=== PATIENT | female | born 1945 | race Caucasian/White ===

== ENCOUNTER 2016-10-08 14:28 | Outpatient (CLI) | END 2016-10-08 14:29 | disposition home or self-care (01) ==

== ENCOUNTER 2017-01-12 10:30 | Outpatient (CLI) | payer MEDICARE | END 2017-01-12 10:31 | disposition home or self-care (01) | DX: L66.1 Lichen planopilaris (principal) ==

== ENCOUNTER 2017-03-04 15:55 | Outpatient (CLI) | payer MEDICARE | END 2017-03-04 15:56 | disposition home or self-care (01) | DX: M51.36 Other intervertebral disc degeneration, lumbar region (principal); M47.897 Other spondylosis, lumbosacral region; M43.9 Deforming dorsopathy, unspecified ==

== ENCOUNTER 2017-05-20 15:11 | Outpatient (CLI) | payer MEDICARE ==
[2017-05-20 15:39] LABS: BASOPHILS # (AUTO) 0.1 10^3/uL (0.0-0.1); BASOPHILS % (AUTO) 0.9 %; EOSINOPHILS # (AUTO) 0.2 10^3/uL (0.0-0.7); EOSINOPHILS % (AUTO) 2.4 %; HCT - HEMATOCRIT 40.2 % (37.0-47.0); HGB - HEMOGLOBIN 13.3 g/dL (12.0-16.0); LYMPHOCYTES # (AUTO) 1.9 10^3/uL (1.5-3.5); LYMPHOCYTES % (AUTO) 22.5 %; MEAN CORPUSCULAR HEMOGLOBIN 30.4 pg (27.0-31.0); MEAN PLATELET VOLUME 8.2 fL (7.9-10.8); MONOCYTES # (AUTO) 0.8 10^3/uL (0.0-1.0); MONOCYTES % (AUTO) 9.8 %; NEUTROPHILS # (AUTO) 5.5 10^3/uL (1.5-6.6); NEUTROPHILS % (AUTO) 64.4 %; RED BLOOD COUNT 4.37 10^6/uL (4.20-5.40); RED CELL DISTRIBUTION WIDTH 12.8 % (12.0-15.0); UNCORRECTED WHITE BLOOD COUNT 8.5 x10^3/uL; WHITE BLOOD COUNT 8.5 x10^3/uL (4.8-10.8)
[2017-05-20 15:52] LABS: ALBUMIN/GLOBULIN RATIO 1.4 (1.0-2.2); BILIRUBIN,TOTAL 0.4 mg/dL (0.2-1.0); CALCIUM 9.2 mg/dL (8.5-10.3); CREATININE 1.2 mg/dL (0.4-1.0); POTASSIUM 4.1 mmol/L (3.5-5.0)
== END 2017-05-20 15:12 | disposition home or self-care (01) ==
LOC: LAB 15:11
PROVIDERS: ATTEND Dermatology
DX: L66.1 Lichen planopilaris (principal)
CPT/HCPCS: 36415; 80053; 85025

== ENCOUNTER 2018-02-09 14:56 | Outpatient (CLI) | payer MEDICARE ==
[2018-02-09 15:19] LABS: BASOPHILS # (AUTO) 0.1 10^3/uL (0.0-0.1); BASOPHILS % (AUTO) 0.8 %; EOSINOPHILS # (AUTO) 0.2 10^3/uL (0.0-0.7); EOSINOPHILS % (AUTO) 2.3 %; HGB - HEMOGLOBIN 13.9 g/dL (12.0-16.0); LYMPHOCYTES # (AUTO) 1.8 10^3/uL (1.5-3.5); LYMPHOCYTES % (AUTO) 26.4 %; MEAN CORPUSCULAR HEMOGLOBIN 29.8 pg (27.0-31.0); MEAN CORPUSCULAR HGB CONC 33.5 g/dL (32.0-36.0); MEAN CORPUSCULAR VOLUME 89.1 fL (81.0-99.0); MONOCYTES # (AUTO) 0.7 10^3/uL (0.0-1.0); MONOCYTES % (AUTO) 9.8 %; NEUTROPHILS # (AUTO) 4.1 10^3/uL (1.5-6.6); NEUTROPHILS % (AUTO) 60.7 %; PLT - PLATELET COUNT 188 10^3/uL (130-450); RED BLOOD COUNT 4.67 10^6/uL (4.20-5.40); RED CELL DISTRIBUTION WIDTH 13.6 % (12.0-15.0); WHITE BLOOD COUNT 6.7 x10^3/uL (4.8-10.8)
[2018-02-09 15:24] LABS: ALBUMIN 4.2 g/dL (3.2-5.5); ALBUMIN/GLOBULIN RATIO 1.4 (1.0-2.2); BILIRUBIN,TOTAL 0.8 mg/dL (0.2-1.0); CALCIUM 9.1 mg/dL (8.5-10.3); CREATININE 0.9 mg/dL (0.4-1.0); TOTAL PROTEIN 7.2 g/dL (6.7-8.2)
== END 2018-02-09 14:57 | disposition home or self-care (01) ==
LOC: LAB 14:56
PROVIDERS: ATTEND Dermatology
DX: L66.1 Lichen planopilaris (principal)
CPT/HCPCS: 36415; 80053; 85025

== ENCOUNTER 2018-07-25 15:09 | Outpatient (CLI) | payer MEDICARE ==
[2018-07-25 15:27] LABS: BASOPHILS # (AUTO) 0.1 10^3/uL (0.0-0.1); BASOPHILS % (AUTO) 0.9 %; EOSINOPHILS # (AUTO) 0.2 10^3/uL (0.0-0.7); EOSINOPHILS % (AUTO) 2.9 %; HGB - HEMOGLOBIN 13.3 g/dL (12.0-16.0); LYMPHOCYTES # (AUTO) 1.6 10^3/uL (1.5-3.5); LYMPHOCYTES % (AUTO) 23.9 %; MEAN CORPUSCULAR HEMOGLOBIN 30.7 pg (27.0-31.0); MEAN CORPUSCULAR HGB CONC 33.9 g/dL (32.0-36.0); MEAN CORPUSCULAR VOLUME 90.4 fL (81.0-99.0); MEAN PLATELET VOLUME 8.1 fL (7.9-10.8); MONOCYTES # (AUTO) 0.6 10^3/uL (0.0-1.0); MONOCYTES % (AUTO) 9.9 %; NEUTROPHILS # (AUTO) 4.1 10^3/uL (1.5-6.6); NEUTROPHILS % (AUTO) 62.4 %; PLT - PLATELET COUNT 211 10^3/uL (130-450); RED BLOOD COUNT 4.33 10^6/uL (4.20-5.40); RED CELL DISTRIBUTION WIDTH 12.5 % (12.0-15.0); WHITE BLOOD COUNT 6.5 x10^3/uL (4.8-10.8)
[2018-07-25 15:42] LABS: ALBUMIN 4.1 g/dL (3.2-5.5); ALBUMIN/GLOBULIN RATIO 1.4 (1.0-2.2); CALCIUM 9.5 mg/dL (8.5-10.3); CREATININE 0.9 mg/dL (0.4-1.0); TOTAL PROTEIN 7.1 g/dL (6.7-8.2)
== END 2018-07-25 15:10 | disposition home or self-care (01) ==
LOC: LAB 15:09
PROVIDERS: ATTEND Dermatology
DX: Z79.899 Other long term (current) drug therapy (principal); L57.8 Other skin changes due to chronic exposure to nonionizing radiation; L82.0 Inflamed seborrheic keratosis; R20.9 Unspecified disturbances of skin sensation; R20.8 Other disturbances of skin sensation; Z78.9 Other specified health status; L53.8 Other specified erythematous conditions; L66.1 Lichen planopilaris
CPT/HCPCS: 36415; 80053; 85025

== ENCOUNTER 2018-09-16 08:53 | Outpatient (CLI) | payer MEDICARE ==
--- NOTE | 2018-09-19 18:50 | DEXA Report ---
Reason: ABNORMAL POSTURE Procedure Date: 09/16/2018 Accession Number: [id number] / [id number] Procedure: DEX - Dexa Spine and/or Hip CPT Code: FULL RESULT: EXAM: Dexa Spine and/or Hip DATE: 09/16/2018 9:15 AM CLINICAL HISTORY: ABNORMAL POSTURE TECHNIQUE: Dual energy x-ray absorptiometry (DXA) was performed on a [employer] System. Regions measured are the AP Spine, femoral neck, and if needed forearm. COMPARISON: None. In accordance with the International Society for Clinical Densitometry (ISCD) guidelines, data from previous exams may be reanalyzed using current recommendations and techniques. This is done to allow a more accurate basis for comparison with the current study. FINDINGS: The data for the lumbar spine is as follows: BMD (g/cm/cm) T-SCORE Z-SCORE REGION L1 0.959 -1.4 0.3 L2 1.078 -1.0 0.7 L3 1.104 -0.8 1.0 L4 1.003 -1.6 0.1 TOTAL 1.028 -1.3 0.5 NOTE: All evaluable vertebrae are used for classification The data for the hip is as follows: BMD (g/cm/cm) T-SCORE Z-SCORE REGION Neck 0.805 -1.7 0.2 TOTAL 0.882 -1.0 0.7 IMPRESSION: THE WHO CLASSIFICATION BASED ON THE INTERNATIONAL REFERENCE STANDARD IS OSTEOPENIA. THE FRACTURE RISK IS INCREASED. RECOMMENDATION: Patients with diagnosis of osteoporosis or osteopenia should have regular bone mineral density assessment. For those eligible for Medicare, routine testing is allowed once every 2 years. Testing frequency can be increased for patients who have rapidly progressing disease or for those who are receiving medical therapy to restore bone mass. COMMENT: World Health Organization (WHO) definitions for osteoporosis and osteopenia: NORMAL BMD: T-score at -1.0 or higher, fracture risk is low OSTEOPENIA BMD: T-score between -1.0 and -2.5, fracture risk is increased. OSTEOPOROSIS BMD: T-score at -2.5 or lower, fracture risk is high. National Osteoporosis Foundation recommends: 1. Obtain adequate dietary calcium (at least 1200 mg per day) and vitamin D (400-800 international units per day). 2. Participate, as appropriate, in regular weightbearing and muscle-strengthening exercise. 3. Avoid tobacco use and reduce alcohol and caffeine intake. 4. For more detailed information see the website at www.NOF.org.
== END 2018-09-16 08:54 | disposition home or self-care (01) ==
LOC: DI 08:53
PROVIDERS: ATTEND Internal Medicine
DX: M85.89 Other specified disorders of bone density and structure, multiple sites (principal)
CPT/HCPCS: 77080

== ENCOUNTER 2018-11-02 10:49 | Outpatient (CLI) | payer MEDICARE ==
[2018-11-02 11:06] LABS: BASOPHILS % (AUTO) 0.8 %; EOSINOPHILS # (AUTO) 0.1 10^3/uL (0.0-0.7); EOSINOPHILS % (AUTO) 2.4 %; HGB - HEMOGLOBIN 13.5 g/dL (12.0-16.0); LYMPHOCYTES # (AUTO) 1.4 10^3/uL (1.5-3.5); LYMPHOCYTES % (AUTO) 24.7 %; MEAN CORPUSCULAR HEMOGLOBIN 30.1 pg (27.0-31.0); MEAN CORPUSCULAR HGB CONC 33.9 g/dL (32.0-36.0); MEAN CORPUSCULAR VOLUME 88.9 fL (81.0-99.0); MEAN PLATELET VOLUME 8.2 fL (7.9-10.8); MONOCYTES # (AUTO) 0.6 10^3/uL (0.0-1.0); MONOCYTES % (AUTO) 10.6 %; NEUTROPHILS # (AUTO) 3.5 10^3/uL (1.5-6.6); NEUTROPHILS % (AUTO) 61.5 %; PLT - PLATELET COUNT 187 10^3/uL (130-450); RED BLOOD COUNT 4.49 10^6/uL (4.20-5.40); RED CELL DISTRIBUTION WIDTH 12.9 % (12.0-15.0); WHITE BLOOD COUNT 5.7 x10^3/uL (4.8-10.8)
[2018-11-02 11:18] LABS: ALBUMIN 4.1 g/dL (3.2-5.5); ALBUMIN/GLOBULIN RATIO 1.4 (1.0-2.2); BILIRUBIN,TOTAL 0.8 mg/dL (0.2-1.0); CALCIUM 9.3 mg/dL (8.5-10.3); CREATININE 0.8 mg/dL (0.4-1.0)
== END 2018-11-02 10:50 | disposition home or self-care (01) ==
LOC: LAB 10:49
PROVIDERS: ATTEND Dermatology
DX: L66.1 Lichen planopilaris (principal)
CPT/HCPCS: 36415; 80053; 85025

== ENCOUNTER 2019-01-20 12:47 | Outpatient (CLI) | payer MEDICARE ==
[2019-01-20 13:20] LABS: BASOPHILS # (AUTO) 0.1 10^3/uL (0.0-0.1); BASOPHILS % (AUTO) 0.7 %; EOSINOPHILS # (AUTO) 0.2 10^3/uL (0.0-0.7); EOSINOPHILS % (AUTO) 2.5 %; HGB - HEMOGLOBIN 12.9 g/dL (12.0-16.0); LYMPHOCYTES # (AUTO) 1.6 10^3/uL (1.5-3.5); LYMPHOCYTES % (AUTO) 23.2 %; MEAN CORPUSCULAR HEMOGLOBIN 29.4 pg (27.0-31.0); MEAN CORPUSCULAR HGB CONC 32.9 g/dL (32.0-36.0); MEAN CORPUSCULAR VOLUME 89.4 fL (81.0-99.0); MONOCYTES # (AUTO) 0.7 10^3/uL (0.0-1.0); MONOCYTES % (AUTO) 9.6 %; NEUTROPHILS # (AUTO) 4.4 10^3/uL (1.5-6.6); PLT - PLATELET COUNT 178 10^3/uL (130-450); RED BLOOD COUNT 4.38 10^6/uL (4.20-5.40); RED CELL DISTRIBUTION WIDTH 13.4 % (12.0-15.0); WHITE BLOOD COUNT 6.9 x10^3/uL (4.8-10.8)
[2019-01-20 13:37] LABS: ALBUMIN 3.9 g/dL (3.2-5.5); ALBUMIN/GLOBULIN RATIO 1.4 (1.0-2.2); BILIRUBIN,TOTAL 0.8 mg/dL (0.2-1.0); CALCIUM 9.1 mg/dL (8.5-10.3); CREATININE 0.9 mg/dL (0.4-1.0); TOTAL PROTEIN 6.7 g/dL (6.7-8.2)
== END 2019-01-20 12:48 | disposition home or self-care (01) ==
LOC: LAB 12:47
PROVIDERS: ATTEND Dermatology
DX: L66.1 Lichen planopilaris (principal)
CPT/HCPCS: 36415; 80053; 85025

== ENCOUNTER 2019-05-10 11:45 | Emergency (ER) | payer MEDICARE ==
--- NOTE | 2019-05-10 12:00 | ED Physician Documentation ---
History of Present Illness - Stated complaint Stated Complaint: SOA/LIGHTHEADED - Chief complaint Chief Complaint: Cardiac - History obtained from History obtained from: Patient - Additonal information Additional information: Patient is a 73-year-old female presenting with about 1 day of lightheadedness, shortness of breath, and difficulty with balance without particular inciting incident, exposure, or trauma. Patient reports fleeting vision changes earlier this morning, but now denies any vision loss or diplopia. Patient also denies any particular paresthesias or paralysis, but reports balance is off. No falls or trauma. Patient denies headache, chest pain, abdominal pain or other areas of pain. Patient also denies cough, fever, nausea, vomiting, urinary changes, or stool changes. Patient does report faint rash over her chest in the past several days which has now resolved. Again, patient denies new medications, exposures, or other changes from baseline. No other improving or worsening factors noted. Review of Systems Constitutional: denies: Fever Eyes: reports: Loss of vision Cardiac: denies: Chest pain / pressure, Palpitations Respiratory: reports: Dyspnea. denies: Cough GI: denies: Abdominal Pain, Nausea, Vomiting, Constipation, Diarrhea : denies: Dysuria Skin: reports: Rash Neurologic: denies: Generalized weakness, Focal weakness, Numbness, Difficulty speaking, Near syncope PD PAST MEDICAL HISTORY - Past Medical History Past Medical History: Yes HEENT: Glaucoma - Past Surgical History Past Surgical History: No - Allergies Allergies/Adverse Reactions: Allergies Allergy/AdvReac Type Severity Reaction Status Date / Time codeine Allergy Unknown Verified 05/10/19 11:55 nitrofurantoin Allergy Unknown Verified 05/10/19 11:55 [From Macrobid] PD ED PE NORMAL - Vitals Vital signs reviewed: Yes - General General: Alert and oriented X 3, No acute distress, Well developed/nourished - HEENT HEENT: Atraumatic, PERRL, EOMI (No nystagmus. Gross visual acuity intact.), Moist mucous membranes, Pharynx benign, Dentition benign - Neck Neck: Supple, no meningeal sign - Cardiac Cardiac: RRR, No murmur - Respiratory Respiratory: No respiratory distress, Clear bilaterally - Abdomen Abdomen: Soft, Non tender, Non distended - Derm Derm: Normal color, Warm and dry, No rash - Extremities Extremities: No deformity, No tenderness to palpate, No edema - Neuro Neuro: Alert and oriented X 3, No motor deficit, No sensory deficit - Psych Psych: Normal mood, Normal affect Results - Vitals Vitals: Vital Signs - 24 hr 05/10/19 05/10/19 11:53 12:55 Temperature 97.8 C H Heart Rate 125 H 60 Respiratory 18 17 Rate Blood Pressure 140/73 H 121/63 O2 Saturation 94 100 Oxygen O2 Source Room air - EKG (time done) 1149 Rate: Rate (enter#) (62) Rhythm: NSR - Labs Labs: Laboratory Tests 05/10/19 05/10/19 05/10/19 12:07 12:55 12:55 WBC 6.8 RBC 4.55 Hgb 13.4 Hct 41.5 MCV 91.2 MCH 29.5 MCHC 32.3 RDW 12.7 Plt Count 189 MPV 10.2 Neut # (Auto) 4.2 Lymph # (Auto) 1.8 [place] # (Auto) 0.6 Eos # (Auto) 0.1 Baso # (Auto) 0.0 Absolute Nucleated RBC 0.00 Nucleated RBC % 0.0 Sodium 140 Potassium 3.9 Chloride 109 Carbon Dioxide 22 Anion Gap 9.0 BUN 18 Creatinine 1.0 Estimated GFR (MDRD) 54 L Glucose 89 Calcium 9.2 Total Bilirubin 1.0 AST 20 ALT 14 Alkaline Phosphatase 46 Troponin I B-Natriuretic Peptide Total Protein 6.9 Albumin 4.1 Globulin 2.8 Albumin/Globulin Ratio 1.5 Lipase 36 TSH Urine Color YELLOW Urine Clarity CLEAR Urine pH 7.5 Ur Specific [place] <=1.005 Urine Protein NEGATIVE Urine Glucose (UA) NEGATIVE Urine Ketones NEGATIVE Urine Occult Blood NEGATIVE Urine Nitrite NEGATIVE Urine Bilirubin NEGATIVE Urine Urobilinogen 0.2 (NORMAL) Ur Leukocyte Esterase NEGATIVE Ur Microscopic Review NOT INDICATED Urine Culture Comments NOT INDICATED 05/10/19 05/10/19 05/10/19 12:55 12:55 12:55 WBC RBC Hgb Hct MCV MCH MCHC RDW Plt Count MPV Neut # (Auto) Lymph # (Auto) [place] # (Auto) Eos # (Auto) Baso # (Auto) Absolute Nucleated RBC Nucleated RBC % Sodium Potassium Chloride Carbon Dioxide Anion Gap BUN Creatinine Estimated GFR (MDRD) Glucose Calcium Total Bilirubin AST ALT Alkaline Phosphatase Troponin I < 0.04 B-Natriuretic Peptide 128 H Total Protein Albumin Globulin Albumin/Globulin Ratio Lipase TSH 3.93 Urine Color Urine Clarity Urine pH Ur Specific [place] Urine Protein Urine Glucose (UA) Urine Ketones Urine Occult Blood Urine Nitrite Urine Bilirubin Urine Urobilinogen Ur Leukocyte Esterase Ur Microscopic Review Urine Culture Comments PD MEDICAL DECISION MAKING - ED course Complexity details: reviewed results, re-evaluated patient, considered differential, d/w patient, d/w family ED course: Patient presenting with generalized lightheadedness, shortness of breath and fleeting vision changes. Physical exam is extremely benign including no evidence of neurological deficit, trauma, or infection present. Lower suspicion for benign positional vertigo based on lack of dizziness, nausea, vomiting. Have lower suspicion for stroke or other intracranial pathology, but did obtain CT head to further rule out, which returned unremarkable. Patient denies symptoms that raise high suspicion for PE, ACS, unstable angina, [place], aneurysm, dissection, pneumonia, but considered. Chest x-ray did not find evidence of acute pathology but incidental finding which was conveyed to patient. EKG and troponin within normal limits. Given lack of chest pain, do not feel cardiac etiology including CHF is of high suspicion. Remainder of screening lab work and urinalysis also returned relatively unremarkable with no evidence of bacteremia, acute kidney injury, electrolyte abnormality, or UTI. Patient reported improvement in shortness of breath while in the ED. Had extensive discussions regarding discharge home with strict return precautions and close follow-up. Patient and family voiced understanding and is comfortable with discharge plan. Departure - Departure Disposition: 01 Home, Self Care Clinical Impression: Dyspnea Qualifiers: Dyspnea type: shortness of breath Qualified Code(s): R06.02 - Shortness of b reath; R06.00 - Dyspnea, unspecified; R06.01 - Orthopnea Condition: Good Instructions: ED Dyspnea Shortness of Breath Follow-Up: Nakita Toney MD [Primary Care Provider] - Within 3 Days Comments: Please continue home medications as previously recommended. Advise minimal exertion over the next several days and contacting your primary care physician to establish follow-up in the next 2 to 3 days. Please return to the ED immediately if experience consistent symptoms or worsening of symptoms, as well as any other complaints.
[2019-05-10 12:19] LABS: BILIRUBIN,URINE NEGATIVE (NEGATIVE); GLUCOSE, URINE (UA) NEGATIVE (NEGATIVE); KETONES,URINE (UA) NEGATIVE (NEGATIVE); LEUKOCYTE ESTERASE, URINE NEGATIVE (NEGATIVE); NITRITE,URINE NEGATIVE (NEGATIVE); OCCULT BLOOD,URINE NEGATIVE (NEGATIVE); PH,URINE 7.5 PH (5.0-7.5); PROTEIN,URINE NEGATIVE (NEGATIVE); UROBILINOGEN,URINE 0.2 (NORMAL) E.U./dL (NORMAL)
[2019-05-10 12:20] LABS: CLARITY,URINE CLEAR (CLEAR)
--- NOTE | 2019-05-10 12:44 | XRAY Report ---
Reason: cough Procedure Date: 05/10/2019 Accession Number: [id number] / [id number] Procedure: XR - Chest 2 View X-Ray CPT Code: 91652 FULL RESULT: EXAM: CHEST RADIOGRAPHY EXAM DATE: 05/10/2019 12:24 PM. CLINICAL HISTORY: Cough. COMPARISON: None. TECHNIQUE: 2 views. FINDINGS: Lungs/Pleura: Possible nodule left lung base versus nipple shadow between the posterior ninth and 10th rib No focal opacities evident. No pleural effusion. No pneumothorax. Normal volumes. Mediastinum: Heart and mediastinal contours are unremarkable. Other: None. IMPRESSION: Nodule versus nipple shadow left lung base. RADIA
--- NOTE | 2019-05-10 12:46 | CT Report ---
Reason: lightheaded, fleeting vison changes Procedure Date: 05/10/2019 Accession Number: [id number] / [id number] Procedure: CT - HEAD WO CPT Code: FULL RESULT: EXAM: CT HEAD EXAM DATE: 05/10/2019 12:32 PM. CLINICAL HISTORY: Lightheaded, fleeting vison changes. COMPARISON: None. TECHNIQUE: Multiaxial CT images were obtained from the foramen magnum to the vertex. Reformats: Sagittal and coronal. IV contrast: None. In accordance with CT protocol optimization, one or more of the following dose reduction techniques were utilized for this exam: automated exposure control, adjustment of mA and/or KV based on patient size, or use of iterative reconstructive technique. FINDINGS: Parenchyma: No intraparenchymal hemorrhage. No evidence of mass, midline shift, or CT findings of infarction. Brink-white differentiation is distinct. Extraaxial Spaces: Normal for age. No subdural or epidural collections identified. Ventricles: Normal in size and position. Sinuses and Orbits: Imaged paranasal sinuses, orbits, and mastoids show no significant abnormality. Note is made of left lens removal. Bones: No evidence of fracture or calvarial defect. Other: None. IMPRESSION: 1. Negative noncontrast CT scan of the head. No acute abnormality. RADIA
[2019-05-10 13:03] LABS: BASOPHILS % (AUTO) 0.6 %; EOSINOPHILS # (AUTO) 0.1 10^3/uL (0.0-0.7); EOSINOPHILS % (AUTO) 1.8 %; HGB - HEMOGLOBIN 13.4 g/dL (12.0-16.0); LYMPHOCYTES # (AUTO) 1.8 10^3/uL (1.5-3.5); MEAN CORPUSCULAR HEMOGLOBIN 29.5 pg (27.0-31.0); MEAN CORPUSCULAR HGB CONC 32.3 g/dL (32.0-36.0); MEAN CORPUSCULAR VOLUME 91.2 fL (81.0-99.0); MEAN PLATELET VOLUME 10.2 fL (7.9-10.8); MONOCYTES # (AUTO) 0.6 10^3/uL (0.0-1.0); MONOCYTES % (AUTO) 8.9 %; NEUTROPHILS # (AUTO) 4.2 10^3/uL (1.5-6.6); NEUTROPHILS % (AUTO) 62.4 %; PLT - PLATELET COUNT 189 10^3/uL (130-450); RED BLOOD COUNT 4.55 10^6/uL (4.20-5.40); RED CELL DISTRIBUTION WIDTH 12.7 % (12.0-15.0); WHITE BLOOD COUNT 6.8 x10^3/uL (4.8-10.8)
[2019-05-10 13:22] LABS: ALBUMIN 4.1 g/dL (3.2-5.5); ALBUMIN/GLOBULIN RATIO 1.5 (1.0-2.2); CALCIUM 9.2 mg/dL (8.5-10.3); TOTAL PROTEIN 6.9 g/dL (6.7-8.2)
[2019-05-10 14:18] VITALS: BP 127/72
== END 2019-05-10 14:18 | disposition home or self-care (01) ==
LOC: ED 11:45
DX: R06.01 Orthopnea (principal)
CPT/HCPCS: 36415; 70450; 71046; 80053; 81001; 81003; 83690; 83880; 84443; 84484; 85025; 87086; 93005; 99283; 99284

== ENCOUNTER 2019-05-24 12:14 | Outpatient (CLI) | payer MEDICARE ==
[2019-05-24 12:37] LABS: BASOPHILS % (AUTO) 0.6 %; EOSINOPHILS # (AUTO) 0.1 10^3/uL (0.0-0.7); EOSINOPHILS % (AUTO) 1.9 %; HGB - HEMOGLOBIN 12.9 g/dL (12.0-16.0); LYMPHOCYTES # (AUTO) 1.5 10^3/uL (1.5-3.5); LYMPHOCYTES % (AUTO) 22.4 %; MEAN CORPUSCULAR HEMOGLOBIN 30.3 pg (27.0-31.0); MEAN CORPUSCULAR HGB CONC 32.8 g/dL (32.0-36.0); MEAN CORPUSCULAR VOLUME 92.3 fL (81.0-99.0); MEAN PLATELET VOLUME 9.8 fL (7.9-10.8); MONOCYTES # (AUTO) 0.7 10^3/uL (0.0-1.0); MONOCYTES % (AUTO) 9.7 %; NEUTROPHILS # (AUTO) 4.5 10^3/uL (1.5-6.6); NEUTROPHILS % (AUTO) 65.1 %; PLT - PLATELET COUNT 172 10^3/uL (130-450); RED BLOOD COUNT 4.26 10^6/uL (4.20-5.40); WHITE BLOOD COUNT 6.9 x10^3/uL (4.8-10.8)
[2019-05-24 12:54] LABS: ALBUMIN 3.7 g/dL (3.2-5.5); ALBUMIN/GLOBULIN RATIO 1.2 (1.0-2.2); BILIRUBIN,TOTAL 0.6 mg/dL (0.2-1.0); CALCIUM 9.4 mg/dL (8.5-10.3); CREATININE 0.9 mg/dL (0.4-1.0); TOTAL PROTEIN 6.8 g/dL (6.7-8.2)
== END 2019-05-24 12:15 | disposition home or self-care (01) ==
LOC: LAB 12:14
PROVIDERS: ATTEND Dermatology
DX: L66.1 Lichen planopilaris (principal)
CPT/HCPCS: 36415; 80053; 85025

== ENCOUNTER 2021-04-05 15:10 | Outpatient (CLI) | payer MEDICARE | END 2021-04-05 15:11 | disposition critical access hospital (66) | LOC: EMS 15:10 | DX: Z04.3 Encounter for examination and observation following other accident (principal); M25.551 Pain in right hip | CPT/HCPCS: A0425; A0429 ==

== ENCOUNTER 2021-04-05 15:19 | Emergency (ER) | payer MEDICARE ==
--- NOTE | 2021-04-05 15:38 | ED Physician Documentation ---
PD HPI LOWER EXT INJURY - Stated complaint Stated Complaint: HIP PX - Chief complaint Chief Complaint: Trauma Ext - History obtained from History obtained from: Patient, EMS - History of Present Illness PD HPI LOW EXT INJURY LOCATION: Right, Hip Type of injury: Fall Where injury occurred: Home Timing - onset: Today Timing - duration: Minutes Timing - details: Abrupt onset, Still present Improved by: Rest, Immobilization Worsened by: Moving, Palpating Associated symptoms: No: Weakness, Numbness, Tingling, Swelling Contributing factors: No: Anticoagulated Similar symptoms before: Has not had sx before Recently seen: Not recently seen - Additional information Additional information: Previously well 75-year-old female with history of glaucoma was up on a two-step stool working on her [place] in the stool gave way she fell onto her right hip. She is not able to move it it hurts and she is worried about a fracture. The ambulance was summoned to her home and picked her up and brought her here to our hospital. Review of Systems Constitutional: denies: Fever Eyes: denies: Decreased vision Ears: denies: Ear pain Nose: denies: Congestion Throat: denies: Sore throat Cardiac: denies: Chest pain / pressure, Palpitations Respiratory: denies: Dyspnea, Cough GI: denies: Abdominal Pain, Nausea, Vomiting, Constipation, Diarrhea : denies: Dysuria, Frequency Skin: denies: Rash Musculoskeletal: reports: Extremity pain, Joint pain. denies: Neck pain, Back pain Neurologic: denies: Generalized weakness, Focal weakness, Numbness PD PAST MEDICAL HISTORY - Past Medical History HEENT: Glaucoma - Past Surgical History Past Surgical History: No - Allergies Allergies/Adverse Reactions: Allergies Allergy/AdvReac Type Severity Reaction Status Date / Time codeine Allergy Unknown Verified 04/05/21 15:32 nitrofurantoin Allergy Unknown Verified 04/05/21 15:32 [From Macrobid] - Social History Does the pt smoke?: No Smoking Status: Never smoker PD ED PE NORMAL - Vitals Vital signs reviewed: Yes (wide pulse pressure) - General General: Alert and oriented X 3, No acute distress, Well developed/nourished - HEENT HEENT: Atraumatic, PERRL, EOMI - Neck Neck: Supple, no meningeal sign, No bony TTP - Cardiac Cardiac: RRR, No murmur - Respiratory Respiratory: No respiratory distress, Clear bilaterally - Abdomen Abdomen: Normal bowel sounds, Soft, Non tender, Non distended, No organomegaly - Back Back: No CVA TTP, No spinal TTP - Derm Derm: Normal color, Warm and dry, No rash - Extremities Extremities: No deformity, No edema, Other (R hip: tenderness to the trochanter and pain with any ROM movement. R shoulder tender with reduced ROM from pain. ) - Neuro Neuro: Alert and oriented X 3, pot feeder 2-12 intact, No motor deficit, No sensory deficit, Normal speech Eye Opening: Spontaneous Motor: Obeys Commands Verbal: Oriented GCS Score: 15 - Psych Psych: Normal mood, Normal affect Results - Vitals Vitals: Vital Signs - 24 hr 04/05/21 04/05/21 15:28 18:30 Temperature 36.9 C Heart Rate 56 L 73 Respiratory 16 10 L Rate Blood Pressure 100/53 L 131/73 H O2 Saturation 100 97 Oxygen O2 Source Room air - Labs Labs: Laboratory Tests 04/05/21 04/05/21 16:25 16:25 WBC 8.6 RBC 4.15 L Hgb 12.3 Hct 38.3 MCV 92.3 MCH 29.6 MCHC 32.1 RDW 13.5 Plt Count 151 MPV 10.6 Neut # (Auto) 6.5 Lymph # (Auto) 1.1 L [place] # (Auto) 0.8 Eos # (Auto) 0.2 Baso # (Auto) 0.0 Absolute Nucleated RBC 0.00 Nucleated RBC % 0.0 Sodium 141 Potassium 3.6 Chloride 108 Carbon Dioxide 23 Anion Gap 10.0 BUN 20 Creatinine 0.9 Estimated GFR (MDRD) 61 L Glucose 110 H Calcium 9.0 Total Bilirubin 0.9 AST 19 ALT 18 Alkaline Phosphatase 48 Total Protein 6.4 L Albumin 3.8 Globulin 2.6 Albumin/Globulin Ratio 1.5 Lipase 33 - Rads (name of study) hip R Radiology: Prelim report reviewed (Impression: Comminuted trochanteric fracture of the right hip.), EMP read indepedently, See rad report shoulder R Radiology: Prelim report reviewed (Impression: No evidence of acute bony abnormality of the right shoulder.), EMP read indepedently, See rad report PD MEDICAL DECISION MAKING - ED course Complexity details: reviewed results, re-evaluated patient, considered differential, d/w patient, d/w family ED course: 75-year-old female has fallen off of a stepladder and fractured her right hip. She injured her right shoulder there is no evidence of fracture. She is treated in the emergency department with intravenous Toradol without adequate pain relief and she gets adequate pain relief with use of Dilaudid and Zofran. We have no orthopedic availability here at [facility] today and I have reached out to our friends at [facility] for potential transfer. Dr. Uribe was kind enough to call us back and has accepted the patient in transfer and asks that we call the hospitalist for direct admit. Departure - Departure Disposition: 02 Transfer Acute Care Hosp Clinical Impression: Closed right hip fracture Condition: Stable
[2021-04-05] MEDS ORDERED: KETOROLAC 30 MG/ML VIAL IVP STA (16:14)
[2021-04-05 16:30] LABS: BASOPHILS % (AUTO) 0.5 %; EOSINOPHILS # (AUTO) 0.2 10^3/uL (0.0-0.7); EOSINOPHILS % (AUTO) 1.8 %; HCT - HEMATOCRIT 38.3 % (37.0-47.0); HGB - HEMOGLOBIN 12.3 g/dL (12.0-16.0); LYMPHOCYTES # (AUTO) 1.1 10^3/uL (1.5-3.5); LYMPHOCYTES % (AUTO) 12.9 %; MEAN CORPUSCULAR HEMOGLOBIN 29.6 pg (27.0-31.0); MEAN CORPUSCULAR HGB CONC 32.1 g/dL (32.0-36.0); MEAN CORPUSCULAR VOLUME 92.3 fL (81.0-99.0); MEAN PLATELET VOLUME 10.6 fL (7.9-10.8); MONOCYTES # (AUTO) 0.8 10^3/uL (0.0-1.0); MONOCYTES % (AUTO) 8.9 %; NEUTROPHILS # (AUTO) 6.5 10^3/uL (1.5-6.6); NEUTROPHILS % (AUTO) 75.4 %; PLT - PLATELET COUNT 151 10^3/uL (130-450); RED BLOOD COUNT 4.15 10^6/uL (4.20-5.40); RED CELL DISTRIBUTION WIDTH 13.5 % (12.0-15.0); WHITE BLOOD COUNT 8.6 x10^3/uL (4.8-10.8)
[2021-04-05 16:42] LABS: ALBUMIN 3.8 g/dL (3.2-5.5); ALBUMIN/GLOBULIN RATIO 1.5 (1.0-2.2); BILIRUBIN,TOTAL 0.9 mg/dL (0.2-1.0); CREATININE 0.9 mg/dL (0.4-1.0); POTASSIUM 3.6 mmol/L (3.5-5.0); TOTAL PROTEIN 6.4 g/dL (6.7-8.2)
[2021-04-05] MEDS ORDERED: HYDROmorphone 1 MG/ML CARPUJECT IVP STA ×3 (16:43→20:12)
[2021-04-05] MEDS ORDERED: ONDANSETRON 4 MG/2 ML VIAL IVP STA (16:43)
--- NOTE | 2021-04-05 17:33 | XRAY Report ---
PROCEDURE: Shoulder 3 View RT INDICATIONS: fall shoulder pain TECHNIQUE: 3 views of the shoulder were acquired. COMPARISON: None. FINDINGS: Bones: No fractures or dislocations. No suspicious bony lesions. Visualized ribs appear intact. Soft tissues: No suspicious soft tissue calcifications. IMPRESSION: No evidence acute bony abnormality of the right shoulder. If clinical suspicion and/or symptoms persist, further assessment with repeat plain films or advanced imaging (e.g., CT, MRI, or bone scan) may be helpful for further assessment. Reviewed by: Vishnu Arreola MD on 04/05/2021 4:32 PM EVETTE Approved by: Vishnu Arreola MD on 04/05/2021 4:32 PM EVETTE Station ID: [id number]
--- NOTE | 2021-04-05 17:33 | XRAY Report ---
PROCEDURE: Hip w/Pelvis 2-3V RT INDICATIONS: fall pain TECHNIQUE: AP pelvis with lateral view(s) of the right hip(s). COMPARISON: None. FINDINGS: Bones: Comminuted trochanteric fracture of the right hip with varus angulation. No dislocation. No ot her fractures. Pelvic ring appears intact. No suspicious bony lesions. Soft tissues: The visualized bowel gas pattern is normal. No suspicious soft tissue calcifications. IMPRESSION: Comminuted trochanteric fracture of the right hip. Reviewed by: Vishnu Arreola MD on 04/05/2021 4:31 PM EVETTE Approved by: Vishnu Arreola MD on 04/05/2021 4:31 PM EVETTE Station ID: [id number]
[2021-04-05 20:24] VITALS: BP 115/60
== END 2021-04-05 20:37 | disposition short-term general hospital (02) ==
LOC: EDUNIT# → ED 15:19
DX: S49.91XA Unspecified injury of right shoulder and upper arm, initial encounter (principal); S72.091A Other fracture of head and neck of right femur, initial encounter for closed fracture; W17.89XA Other fall from one level to another, initial encounter; Y93.H2 Activity, gardening and landscaping; Y92.007 Garden or yard of unspecified non-institutional (private) residence as the place of occurrence of the external cause
CPT/HCPCS: 36415; 73030; 73502; 80053; 83690; 85025; 96374; 96375; 96376; 99284; 99285; J1170

== ENCOUNTER 2021-04-05 20:40 | Outpatient (CLI) | payer MEDICARE | END 2021-04-05 20:41 | disposition short-term general hospital (02) | LOC: EMS 20:40 | PROVIDERS: ATTEND Emergency Medicine | DX: S72.101A Unspecified trochanteric fracture of right femur, initial encounter for closed fracture (principal); W08.XXXA Fall from other furniture, initial encounter; Y93.H2 Activity, gardening and landscaping; Y92.007 Garden or yard of unspecified non-institutional (private) residence as the place of occurrence of the external cause | CPT/HCPCS: A0425; A0428 ==

== ENCOUNTER 2021-08-21 09:55 | Outpatient (CLI) | payer MEDICARE ==
--- NOTE | 2021-08-21 16:22 | DEXA Report ---
PROCEDURE: Dexa Spine and/or Hip INDICATIONS: OSTEOPOROSIS SCREENING TECHNIQUE: Dual energy x-ray absorptiometry (DXA) was performed on a [employer]. Regions measur ed are the AP Spine, femoral neck, and if needed forearm. COMPARISON: DEXA 09/16/2018 FINDINGS: Lumbar Spine: Bone Mineral Density 1.020 g/cm/cm,T score -1.3, unchanged Left Hip: Bone Mineral Density 0.799 g/cm/cm,T score -1.7, compared to -1.0 Left Femoral Neck: Bone Mineral Density 0.796 g/cm/cm, T score -1.7, unchanged (T score greater or equal to -1.0: NORMAL) (T score from -1.1 to -2.4: OSTEOPENIA) (T score less than or equal to -2.5 to: OSTEOPOROSIS) Impression: Mild to moderate osteopenia within the left hip progressive compared to prior exam. Patients with diagnosis of osteoporosis or osteopenia should have regular bone mineral density assess ment. For those eligible for Medicare, routine testing is allowed once every 2 years. Testing frequ ency can be increased for patients who have rapidly progressing disease or for those who are receivin g medical therapy to restore bone mass. Reviewed by: Regina Gardner MD on 08/21/2021 4:21 PM PST Approved by: Regina Gardner MD on 08/21/2021 4:21 PM PST Station ID: [id number]
== END 2021-08-21 09:56 | disposition home or self-care (01) ==
LOC: DI 09:55
PROVIDERS: ATTEND Nurse Practitioner Family
DX: Z13.820 Encounter for screening for osteoporosis (principal); M85.89 Other specified disorders of bone density and structure, multiple sites; Z78.0 Asymptomatic menopausal state

== ENCOUNTER 2022-04-23 07:36 | Outpatient (CLI) | payer MEDICARE | END 2022-04-23 07:37 | disposition short-term general hospital (02) | LOC: EMS 07:36 | DX: Z04.3 Encounter for examination and observation following other accident (principal) | CPT/HCPCS: A0425; A0427 ==

== ENCOUNTER 2022-04-28 08:00 | Outpatient (CLI) | payer MEDICARE ==
--- NOTE | 2022-04-28 15:01 | XRAY Report ---
PROCEDURE: Shoulder 3 View LT INDICATIONS: SHOULDER FX TECHNIQUE: 4 views of the shoulder were acquired. COMPARISON: Left shoulder radiographs 04/23/2022 FINDINGS: Bones: There is a comminuted displaced fracture of the proximal humeral head and neck. Compared to th e exam from 04/23/2022, there appears to be increased anterior and medial displacement of the humeral shaft fragment relative to the humeral head. Soft tissues: No suspicious soft tissue calcifications. IMPRESSION: Comminuted displaced fracture of the proximal humerus is redemonstrated with increased a nterior medial displacement of the humeral shaft component when compared to the exam from 04/23/2022. Reviewed by: Virgilio Estevez MD on 04/28/2022 2:59 PM PDT Approved by: Virgilio Estevez MD on 04/28/2022 2:59 PM PDT Station ID: [id number]
== END 2022-04-28 08:01 | disposition home or self-care (01) ==
LOC: DI.WOS 08:00
PROVIDERS: ATTEND Physician Assistant Surgical
DX: S42.202D Unspecified fracture of upper end of left humerus, subsequent encounter for fracture with routine healing (principal)

== ENCOUNTER 2022-06-23 08:00 | Outpatient (CLI) | payer MEDICARE ==
--- NOTE | 2022-06-23 14:43 | XRAY Report ---
PROCEDURE: Shoulder 2 View LT INDICATIONS: LEFT SHOULDER FX TECHNIQUE: 2 views of the shoulder were acquired. COMPARISON: 04/28/2022 FINDINGS: Bones: Comminuted proximal humeral fracture shows improved alignment with bridging callus and periost eal reaction. No subluxation. Left lung apex is clear. Generalized decreased osseous mineralization p resent. Soft tissues: No suspicious soft tissue calcifications. IMPRESSION: 1. Healing comminuted proximal humeral fracture Reviewed by: Alexandro Lutz MD on 06/23/2022 1:42 PM AKPRIYA Approved by: Alexandro Lutz MD on 06/23/2022 1:42 PM AKDT Station ID: [id number]
== END 2022-06-23 23:59 | disposition home or self-care (01) ==
LOC: DI.WOS 08:00
PROVIDERS: ATTEND Orthopaedic Surgery
DX: S42.242D 4-part fracture of surgical neck of left humerus, subsequent encounter for fracture with routine healing (principal)

== ENCOUNTER 2022-08-04 08:00 | Outpatient (CLI) | payer MEDICARE ==
--- NOTE | 2022-08-04 14:09 | XRAY Report ---
PROCEDURE: Shoulder 2 View LT INDICATIONS: LEFT SHOULDER FRACTURE TECHNIQUE: 2 views of the shoulder were acquired. COMPARISON: Left shoulder radiographs 06/23/2022. Left shoulder CT 05/11/2022. FINDINGS: Bones: Overall no significant interval change. Comminuted humeral head and neck fracture with impacti on. There is callus formation. No dislocation of the glenohumeral joint. No suspicious bony lesions. Visualized ribs appear intact. Soft tissues: No suspicious soft tissue calcifications. IMPRESSION: Overall no significant interval change. Comminuted humeral head and neck fracture with impaction. Reviewed by: Lamin Vivar MD on 08/04/2022 1:08 PM EVETTE Approved by: Lamin Vivar MD on 08/04/2022 1:08 PM EVETTE Station ID: [id number]
== END 2022-08-04 23:59 | disposition home or self-care (01) ==
LOC: DI.WOS 08:00
PROVIDERS: ATTEND Orthopaedic Surgery
DX: S42.242D 4-part fracture of surgical neck of left humerus, subsequent encounter for fracture with routine healing (principal)

== ENCOUNTER 2022-10-19 15:26 | Outpatient (CLI) | payer MEDICARE ==
--- NOTE | 2022-10-19 17:10 | XRAY Report ---
PROCEDURE: Shoulder 3 View LT INDICATIONS: LEFT SHOULDER FRACTURE TECHNIQUE: 4 views of the shoulder were acquired. COMPARISON: 08/04/2022 and 06/23/2022. FINDINGS: Bones: Interval healing at patient's known proximal humeral fracture site with partial bony union. An terior medial displacement of proximal humeral shaft is again seen with overall shoulder alignment is unchanged from prior study. Left acromioclavicular joint and glenohumeral joint osteoarthritic bender es are seen. No new fracture or dislocation. No suspicious bony lesions. Visualized ribs appear inta ct. Soft tissues: No suspicious soft tissue calcifications. IMPRESSION: Interval healing at proximal humeral fracture site with partial bony union. Stable left shoulder alignment. No new fracture or dislocation. Left shoulder joint osteoarthritis. Reviewed by: Edgard Schmidt MD on 10/19/2022 5:09 PM PST Approved by: Edgard Schmidt MD on 10/19/2022 5:09 PM PST Station ID: [id number]
== END 2022-10-19 15:28 | disposition home or self-care (01) ==
LOC: DI.WOS 15:26
PROVIDERS: ATTEND Orthopaedic Surgery
DX: S42.242D 4-part fracture of surgical neck of left humerus, subsequent encounter for fracture with routine healing (principal); M19.012 Primary osteoarthritis, left shoulder

== ENCOUNTER 2023-03-09 14:17 | Outpatient (CLI) | payer MEDICARE ==
[2023-03-09 14:32] LABS: BASOPHILS % (AUTO) 0.6 %; EOSINOPHILS # (AUTO) 0.1 10^3/uL (0.0-0.7); HCT - HEMATOCRIT 39.4 % (37.0-47.0); HGB - HEMOGLOBIN 12.7 g/dL (12.0-16.0); LYMPHOCYTES # (AUTO) 1.7 10^3/uL (1.5-3.5); LYMPHOCYTES % (AUTO) 25.3 %; MEAN CORPUSCULAR HEMOGLOBIN 29.9 pg (27.0-31.0); MEAN CORPUSCULAR HGB CONC 32.2 g/dL (32.0-36.0); MEAN CORPUSCULAR VOLUME 92.7 fL (81.0-99.0); MEAN PLATELET VOLUME 10.7 fL (7.9-10.8); MONOCYTES # (AUTO) 0.8 10^3/uL (0.0-1.0); MONOCYTES % (AUTO) 12.7 %; NEUTROPHILS # (AUTO) 3.9 10^3/uL (1.5-6.6); NEUTROPHILS % (AUTO) 59.2 %; PLT - PLATELET COUNT 176 10^3/uL (130-450); RED BLOOD COUNT 4.25 10^6/uL (4.20-5.40); RED CELL DISTRIBUTION WIDTH 13.8 % (12.0-15.0); WHITE BLOOD COUNT 6.6 x10^3/uL (4.8-10.8)
[2023-03-09 14:42] LABS: ALBUMIN/GLOBULIN RATIO 1.3 (1.0-2.2); BILIRUBIN,TOTAL 0.9 mg/dL (0.2-1.0); CALCIUM 9.2 mg/dL (8.5-10.3); CREATININE 0.8 mg/dL (0.4-1.0); TOTAL PROTEIN 7.2 g/dL (6.7-8.2)
== END 2023-03-09 14:18 | disposition home or self-care (01) ==
LOC: LAB 14:17
DX: L66.1 Lichen planopilaris (principal)
CPT/HCPCS: 36415; 80053; 85025

== ENCOUNTER 2023-07-01 08:00 | Outpatient (CLI) | payer MEDICARE ==
--- NOTE | 2023-07-01 10:46 | XRAY Report ---
PROCEDURE: Wrist 3 View LT INDICATIONS: LEFT WRIST FRACTURE TECHNIQUE: 3 views of the wrist were acquired. COMPARISON: 06/26/2023. FINDINGS: Bones: A very subtle nondisplaced distal radius fracture is more visible on the current study than o n the study from 5 days ago. No other fractures or dislocations. Soft tissues: No suspicious soft tissue calcifications or masses. IMPRESSION: Subtle early subacute nondisplaced distal radius fracture. Reviewed by: Vishnu Arreola MD on 07/01/2023 10:45 AM PDT Approved by: Vishnu Arreola MD on 07/01/2023 10:45 AM PDT Station ID: [id number]
== END 2023-07-01 23:59 | disposition home or self-care (01) ==
LOC: DI.WOS 08:00
PROVIDERS: ATTEND Orthopaedic Surgery
DX: S52.502A Unspecified fracture of the lower end of left radius, initial encounter for closed fracture (principal)

== ENCOUNTER 2023-08-02 08:00 | Outpatient (CLI) | payer MEDICARE ==
--- NOTE | 2023-08-02 13:50 | XRAY Report ---
PROCEDURE: Wrist 3 View LT INDICATIONS: LEFT WRIST FRACTURE TECHNIQUE: 3 views of the wrist were acquired. COMPARISON: X-ray left wrist 07/01/2023. FINDINGS: Bones: Healing mildly displaced distal radial fracture with callus formation. Diffusely decreased os seous mineralization. Soft tissues: No suspicious soft tissue calcifications or masses. IMPRESSION: Healing distal radial fracture. Reviewed by: Lauro Christina MD on 08/02/2023 1:49 PM PDT Approved by: Lauro Christina MD on 08/02/2023 1:49 PM PDT Station ID: [id number]
== END 2023-08-02 23:59 | disposition home or self-care (01) ==
LOC: DI.WOS 08:00
PROVIDERS: ATTEND Orthopaedic Surgery
DX: S52.532D Colles' fracture of left radius, subsequent encounter for closed fracture with routine healing (principal)

== ENCOUNTER 2023-08-13 14:23 | Outpatient (CLI) | payer MEDICARE ==
--- NOTE | 2023-08-16 17:00 | DEXA Report ---
PROCEDURE: Dexa Spine and/or Hip INDICATIONS: OSTEOPENIA TECHNIQUE: Dual energy x-ray absorptiometry (DXA) was performed on a [employer] System. Regions measur ed are the AP Spine, femoral neck, and if needed forearm. COMPARISON: None FINDINGS: Lumbar Spine: Bone Mineral Density 0.963 g/cm/cm,T score -1.8. Left Femoral Neck: Bone Mineral Density 0.736 g/cm/cm, T score -2.2. Left Hip: Bone Mineral Density 0.714 g/cm/cm,T score -2.3. (T score greater or equal to -1.0: NORMAL) (T score from -1.1 to -2.4: OSTEOPENIA) (T score less than or equal to -2.5 to: OSTEOPOROSIS) Impression: By WHO criteria, this patient has low bone density (osteopenia). Patients with diagnosis of osteoporosis or osteopenia should have regular bone mineral density assess ment. For those eligible for Medicare, routine testing is allowed once every 2 years. Testing frequ ency can be increased for patients who have rapidly progressing disease or for those who are receivin g medical therapy to restore bone mass. Reviewed by: Edgard Schmidt MD on 08/16/2023 4:59 PM PST Approved by: Edgard Schmidt MD on 08/16/2023 4:59 PM PST Station ID: [id number]
== END 2023-08-13 14:24 | disposition home or self-care (01) ==
LOC: DI 14:23
PROVIDERS: ATTEND Family Medicine
DX: M85.89 Other specified disorders of bone density and structure, multiple sites (principal)

== ENCOUNTER 2023-12-23 08:00 | Outpatient (CLI) | payer MEDICARE | END 2023-12-23 23:59 | disposition home or self-care (01) | LOC: LAB.N 08:00 | PROVIDERS: ATTEND Registered Nurse | DX: R30.0 Dysuria (principal) | CPT/HCPCS: 87086; 87181 ==